=== PATIENT | male | born 1970 | race Hispanic/Latino ===

== ENCOUNTER 2020-07-25 11:36 | Emergency (ER) | payer OTHER, MEDICAID ==
[2020-07-25 11:58] LABS: ABG OXYGEN SATURATION 40.1 % (95.0-99.0); BASE EXCESS,VENOUS BLOOD GAS 0.4 (-2.0-3.0); HCO3,VENOUS BLOOD GAS 26.1 (21.0-28.0); PCO2,VENOUS BLOOD GAS 46 (35-48); PH,VENOUS BLOOD GAS 7.374 (7.350-7.450)
[2020-07-25 12:06] LABS: BASOPHILS % (AUTO) 0.8 % (0.0-5.0); EOSINOPHILS % (AUTO) 3.2 % (0.0-8.0); HEMATOCRIT 36.4 % (42-54); LYMPHOCYTES % (AUTO) 26.3 % (21.0-51.0); MEAN CORPUSCULAR HEMOGLOBIN 31.9 pg (27.0-33.0); MEAN CORPUSCULAR HGB CONC 35.7 g/dL (32.0-36.0); MEAN CORPUSCULAR VOLUME 89.4 fL (79-99); MONOCYTES % (AUTO) 7.2 % (3.0-13.0); NEUTROPHILS % (AUTO) 62.3 % (40.0-77.0); PLATELET COUNT (AUTO) 252 K/uL (130-400); RED BLOOD CELL COUNT(AUTO) 4.07 MIL/uL (4.50-6.20); WHITE BLOOD COUNT (AUTO) 8.9 K/uL (4.8-10.8)
[2020-07-25 12:20] LABS: CARBON DIOXIDE 29 mmol/L (21-32); CHLORIDE 100 mmol/L (101-111); CREATININE 1.5 mg/dL (0.5-1.5); GLOMERULAR FILTR. RATE CALC 52 mL/min (>60); POTASSIUM 4.1 mmol/L (3.5-5.1); SODIUM SERUM 136 mmol/L (136-145); UREA NITROGEN, BLOOD 29 mg/dL (7-18)
[2020-07-25 12:21] LABS: ALANINE AMINOTRANSFERASE 46 U/L (12-78); ALBUMIN 3.9 g/dL (3.5-5.0); ASPARTATE AMINOTRANSFERASE 27 U/L (10-37); BILIRUBIN,TOTAL 0.3 mg/dL (0.2-1.0); CREATINE KINASE, TOTAL 154 U/L (21-232); LIPASE 159 U/L (114-286); TOTAL PROTEIN, SERUM 7.4 g/dL (6.0-8.3)
[2020-07-25 12:22] LABS: INR 0.9 (0.85-1.15); PARTIAL THROMBOPLASTIN TIME 27.7 SEC (26.3-35.5); PROTHROMBIN TIME 9.8 SEC (9.6-11.6)
[2020-07-25 12:33] LABS: AMMONIA < 3 umol/L (11-32)
[2020-07-25 12:38] LABS: GLUCOSE,RANDOM 332 mg/dL (70-105)
[2020-07-25 12:50] LABS: B-TYPE NATRIURETIC PEPTIDE 9 pg/mL (0-100)
[2020-07-25] MEDS ORDERED: ONDANSETRON HCL 4 MG/2 ML VIAL ONE (13:06)
[2020-07-25] MEDS ORDERED: ACETAMINOPHEN EXTRA STRENGTH 500 MG TABLET ONE (13:36)
== END 2020-07-25 14:15 ==
LOC: EEVIPCON 11:36 → EDH 11:36
DX: R10.9 Unspecified abdominal pain (principal); R11.2 Nausea with vomiting, unspecified; E11.9 Type 2 diabetes mellitus without complications; K74.60 Unspecified cirrhosis of liver; I10 Essential (primary) hypertension; J45.909 Unspecified asthma, uncomplicated; Z87.891 Personal history of nicotine dependence
CPT/HCPCS: 36415; 36600; 71045; 74176; 80053; 82010; 82140; 82550; 82803; 82948; 83690; 83880; 84484; 85025; 85610; 85730; 93005; 96374; 99285; J2405

== ENCOUNTER 2020-08-03 20:40 | Emergency (ER) | payer OTHER, MEDICAID ==
[2020-08-03 21:37] LABS: BASOPHILS % (AUTO) 0.6 % (0.0-5.0); EOSINOPHILS % (AUTO) 5.8 % (0.0-8.0); HEMATOCRIT 33.2 % (42-54); LYMPHOCYTES % (AUTO) 33.1 % (21.0-51.0); MEAN CORPUSCULAR HEMOGLOBIN 31.6 pg (27.0-33.0); MEAN CORPUSCULAR HGB CONC 34.3 g/dL (32.0-36.0); MONOCYTES % (AUTO) 10.2 % (3.0-13.0); PLATELET COUNT (AUTO) 231 K/uL (130-400); RED BLOOD CELL COUNT(AUTO) 3.61 MIL/uL (4.50-6.20); RED CELL DISTRIBUTION WIDTH 12.2 % (11.0-15.5); WHITE BLOOD COUNT (AUTO) 6.9 K/uL (4.8-10.8)
[2020-08-03] MEDS ORDERED: MORPHINE SULFATE 2 MG/ML 1ML SYG ONE (21:39)
[2020-08-03 21:54] LABS: CRP QUANTITATIVE 7.5 mg/L (0.00-9.0)
[2020-08-03 21:59] LABS: ALBUMIN 3.4 g/dL (3.5-5.0); BILIRUBIN,TOTAL 0.1 mg/dL (0.2-1.0); CREATININE 1.4 mg/dL (0.5-1.5); TOTAL PROTEIN, SERUM 6.3 g/dL (6.0-8.3)
[2020-08-03] MEDS ORDERED: INSULIN HUMULIN R 100 UNIT/ML 3ML ONE (22:17)
[2020-08-03] MEDS ORDERED: CEFTRIAXONE SODIUM 1 GM ONE (22:34)
== END 2020-08-03 23:44 ==
LOC: EDH 20:40
DX: L03.116 Cellulitis of left lower limb (principal); E13.65 Other specified diabetes mellitus with hyperglycemia; J45.909 Unspecified asthma, uncomplicated; I10 Essential (primary) hypertension
CPT/HCPCS: 36415; 80053; 82948; 83605; 84145; 85025; 86140; 87040 ×2; 96361; 96374; 96375; 99284; J0696; J1815